=== PATIENT | male | born 1960 | race Caucasian/White ===

== ENCOUNTER → 2016-10-18 | Outpatient (REF) | payer OTHER ==
[2016-10-18 13:46] LABS: ALBUMIN 3.8 GM/DL (3.2-5.2); ALBUMIN/GLOBULIN RATIO 0.95 (1.00-1.93); ALKALINE PHOSPHATASE 88 U/L (45-117); ALT/SGPT 38 U/L (12-78); ANION GAP 9 MEQ/L (8-16); AST/SGOT 15 U/L (15-37); BILIRUBIN,TOTAL 0.6 MG/DL (0.2-1.0); BLOOD UREA NITROGEN 21 MG/DL (7-18); CALCIUM LEVEL 9.4 MG/DL (8.5-10.1); CARBON DIOXIDE LEVEL 29 MEQ/L (21-32); CHLORIDE LEVEL 103 MEQ/L (98-107); CHOLESTEROL LEVEL 168 MG/DL (<200); CREATININE FOR GFR 1.13 MG/DL (0.70-1.30); GLOMERULAR FILTRATION RATE > 60.0 (>56); GLUCOSE, FASTING 158 MG/DL (70-105); POTASSIUM SERUM 4.1 MEQ/L (3.5-5.1); SODIUM LEVEL 141 MEQ/L (136-145); TOTAL PROTEIN 7.8 GM/DL (6.4-8.2); TRIGLYCERIDES LEVEL 439 MG/DL (<150)
== END ==
LOC: M SFHCADAM 10:00
PROVIDERS: ATTEND Physician Assistant Medical
DX: E11.9 Type 2 diabetes mellitus without complications (principal); E78.4 Other hyperlipidemia

== ENCOUNTER → 2017-06-14 | Outpatient (REF) | payer OTHER ==
[2017-06-14 11:20] LABS: BASO # 0.1 10^3/uL (0.0-0.2); BASO % 0.9 % (0.0-1.0); EOS # 0.3 10^3/uL (0.0-0.50); EOS % 3.4 % (0.0-3.0); HEMATOCRIT 49.7 % (42.0-52.0); HEMOGLOBIN 16.6 g/dl (14.0-18.0); LYMPH # 2.4 10^3/uL (1.5-4.5); LYMPH % 25.5 % (24.0-44.0); MEAN CORPUSCULAR HEMOGLOBIN 30.5 pg (27.0-33.0); MEAN CORPUSCULAR HGB CONC 33.4 g/dl (32.0-36.5); MEAN CORPUSCULAR VOLUME 91.2 fl (80.0-96.0); MONO # 0.5 10^3/uL (0.0-0.8); MONO % 5.9 % (0.0-5.0); NEUTROPHILS # 5.8 10^3/uL (1.8-7.7); NEUTROPHILS % 63.3 % (36.0-66.0); PLATELET COUNT, AUTOMATED 219 10^3/uL (150-450); RED BLOOD COUNT 5.45 10^6/uL (4.30-6.10); RED CELL DISTRIBUTION WIDTH 13.3 % (11.5-14.5); WHITE BLOOD COUNT 9.2 10^3/uL (4.0-10.0)
[2017-06-14 11:36] LABS: ESTIMATED AVERAGE GLUCOSE 298 MG/DL (60-110)
[2017-06-14 11:56] LABS: ALBUMIN/GLOBULIN RATIO 1.08 (1.00-1.93); ALKALINE PHOSPHATASE 97 U/L (45-117); ALT/SGPT 19 U/L (12-78); ANION GAP 11 MEQ/L (8-16); AST/SGOT 9 U/L (7-37); BILIRUBIN,TOTAL 0.8 MG/DL (0.2-1.0); BLOOD UREA NITROGEN 15 MG/DL (7-18); CALCIUM LEVEL 9.9 MG/DL (8.5-10.1); CARBON DIOXIDE LEVEL 26 MEQ/L (21-32); CHLORIDE LEVEL 105 MEQ/L (98-107); CHOLESTEROL LEVEL 168 MG/DL (<200); CREATININE FOR GFR 0.94 MG/DL (0.70-1.30); FREE T4 1.08 NG/DL (0.76-1.46); GLOMERULAR FILTRATION RATE > 60.0 (>56); GLUCOSE, FASTING 216 MG/DL (70-100); HDL CHOLESTEROL 35 MG/DL (>40); NON-HDL-C 133 MG/DL; POTASSIUM SERUM 4.1 MEQ/L (3.5-5.1); SODIUM LEVEL 142 MEQ/L (136-145); THYROID STIMULATING HORMONE 0.846 uIU/ML (0.358-3.740); TOTAL PROTEIN 7.7 GM/DL (6.4-8.2); TRIGLYCERIDES LEVEL 499 MG/DL (<150)
[2017-06-14 12:11] LABS: TOTAL 25(OH) VITAMIN D 21.8 NG/ML (30.0-100.0)
== END ==
LOC: M SFHCADAM 07:43
DX: E11.9 Type 2 diabetes mellitus without complications (principal)
CPT/HCPCS: 84443

== ENCOUNTER → 2017-10-22 | Outpatient (CLI) | payer OTHER | LOC: M RAD 13:05 | DX: H71.01 Cholesteatoma of attic, right ear (principal) | CPT/HCPCS: 70480 ==

== ENCOUNTER → 2017-12-06 | Outpatient (REF) | payer OTHER ==
[2017-12-06 13:47] LABS: TOTAL 25(OH) VITAMIN D 19.4 NG/ML (30.0-100.0)
[2017-12-06 13:49] LABS: ALBUMIN 3.8 GM/DL (3.2-5.2); ALBUMIN/GLOBULIN RATIO 0.95 (1.00-1.93); ALKALINE PHOSPHATASE 95 U/L (45-117); ALT/SGPT 29 U/L (12-78); ANION GAP 8 MEQ/L (8-16); AST/SGOT 11 U/L (7-37); BILIRUBIN,TOTAL 0.4 MG/DL (0.2-1.0); BLOOD UREA NITROGEN 32 MG/DL (7-18); CALCIUM LEVEL 9.5 MG/DL (8.5-10.1); CARBON DIOXIDE LEVEL 30 MEQ/L (21-32); CHLORIDE LEVEL 102 MEQ/L (98-107); CHOLESTEROL LEVEL 206 MG/DL (<200); CHOLESTEROL RISK RATIO 5.421 (<5); CREATININE FOR GFR 1.02 MG/DL (0.70-1.30); GLOMERULAR FILTRATION RATE > 60.0 (>56); GLUCOSE, FASTING 255 MG/DL (70-100); HDL CHOLESTEROL 38 MG/DL (>40); NON-HDL-C 168 MG/DL; POTASSIUM SERUM 4.6 MEQ/L (3.5-5.1); SODIUM LEVEL 140 MEQ/L (136-145); THYROID STIMULATING HORMONE 0.993 uIU/ML (0.358-3.740); TOTAL PROTEIN 7.8 GM/DL (6.4-8.2); TRIGLYCERIDES LEVEL 823 MG/DL (<150)
[2017-12-06 14:09] LABS: CREATININE, URINE 42.6 MG/DL; MALB URINE SIEMENS 19.1 MG/L; MAU/CREAT RATIO 44.8 MCG/MG (0.0-30.0)
[2017-12-06 14:31] LABS: ESTIMATED AVERAGE GLUCOSE 223 MG/DL (60-110); HEMOGLOBIN A1c 9.4 %
== END ==
LOC: M SFHCADAM 08:23
DX: E11.9 Type 2 diabetes mellitus without complications (principal); E78.4 Other hyperlipidemia
CPT/HCPCS: 84443

== ENCOUNTER → 2018-04-09 | Outpatient (REF) | payer OTHER ==
[2018-04-09 14:38] LABS: ESTIMATED AVERAGE GLUCOSE 237 MG/DL (60-110); HEMOGLOBIN A1c 9.9 %
[2018-04-09 14:41] LABS: ALBUMIN 3.9 GM/DL (3.2-5.2); ALKALINE PHOSPHATASE 101 U/L (45-117); ALT/SGPT 24 U/L (12-78); ANION GAP 10 MEQ/L (8-16); AST/SGOT 11 U/L (7-37); BILIRUBIN,TOTAL 0.4 MG/DL (0.2-1.0); BLOOD UREA NITROGEN 34 MG/DL (7-18); CALCIUM LEVEL 9.7 MG/DL (8.5-10.1); CARBON DIOXIDE LEVEL 25 MEQ/L (21-32); CHLORIDE LEVEL 103 MEQ/L (98-107); CHOLESTEROL LEVEL 199 MG/DL (<200); CREATININE FOR GFR 1.13 MG/DL (0.70-1.30); GLOMERULAR FILTRATION RATE > 60.0 (>56); GLUCOSE, FASTING 282 MG/DL (70-100); HDL CHOLESTEROL 33 MG/DL (>40); NON-HDL-C 166 MG/DL; POTASSIUM SERUM 4.3 MEQ/L (3.5-5.1); SODIUM LEVEL 138 MEQ/L (136-145); TOTAL PROTEIN 7.8 GM/DL (6.4-8.2); TRIGLYCERIDES LEVEL 678 MG/DL (<150)
== END ==
LOC: M SFHCADAM 09:16
DX: Z00.00 Encounter for general adult medical examination without abnormal findings (principal)

== ENCOUNTER → 2018-08-26 | Outpatient (REF) | payer OTHER ==
[2018-08-26 19:46] LABS: TOTAL 25(OH) VITAMIN D 37.8 NG/ML (30.0-100.0)
[2018-08-26 19:59] LABS: HEMOGLOBIN A1c 8.6 %
[2018-08-26 22:57] LABS: ALBUMIN 4.1 GM/DL (3.2-5.2); ALT/SGPT 30 U/L (12-78); BILIRUBIN,TOTAL 0.5 MG/DL (0.2-1.0); BLOOD UREA NITROGEN 22 MG/DL (7-18); CARBON DIOXIDE LEVEL 26 MEQ/L (21-32); CHLORIDE LEVEL 106 MEQ/L (98-107); CREATININE FOR GFR 1.15 MG/DL (0.70-1.30); GLOMERULAR FILTRATION RATE > 60.0 (>56); GLUCOSE, FASTING 184 MG/DL (70-100); POTASSIUM SERUM 4.2 MEQ/L (3.5-5.1); SODIUM LEVEL 139 MEQ/L (136-145); TOTAL PROTEIN 7.8 GM/DL (6.4-8.2)
== END ==
LOC: M SFHCADAM 15:51
PROVIDERS: ATTEND Physician Assistant Medical
DX: E11.42 Type 2 diabetes mellitus with diabetic polyneuropathy (principal)

== ENCOUNTER → 2018-11-25 | Outpatient (REF) | payer OTHER ==
[2018-11-25 13:18] LABS: ALBUMIN 3.9 GM/DL (3.2-5.2); ALT/SGPT 28 U/L (12-78); BILIRUBIN,TOTAL 0.7 MG/DL (0.2-1.0); BLOOD UREA NITROGEN 19 MG/DL (7-18); CALCIUM LEVEL 9.3 MG/DL (8.5-10.1); CARBON DIOXIDE LEVEL 26 MEQ/L (21-32); CHLORIDE LEVEL 107 MEQ/L (98-107); CHOLESTEROL LEVEL 155 MG/DL (<200); CREATININE FOR GFR 1.14 MG/DL (0.70-1.30); GLOMERULAR FILTRATION RATE > 60.0 (>56); GLUCOSE, FASTING 158 MG/DL (70-100); HDL CHOLESTEROL 31 MG/DL (>40); NON-HDL-C 124 MG/DL; POTASSIUM SERUM 4.2 MEQ/L (3.5-5.1); SODIUM LEVEL 139 MEQ/L (136-145); TOTAL PROTEIN 7.8 GM/DL (6.4-8.2); TRIGLYCERIDES LEVEL 443 MG/DL (<150)
[2018-11-25 13:39] LABS: CREATININE, URINE 90.7 MG/DL; MALB URINE SIEMENS 12.5 MG/L; MAU/CREAT RATIO 13.7 MCG/MG (0.0-30.0)
[2018-11-25 13:59] LABS: HEMOGLOBIN A1c 7.9 %
== END ==
LOC: M SFHCADAM 08:41
PROVIDERS: ATTEND Physician Assistant Medical
DX: E11.42 Type 2 diabetes mellitus with diabetic polyneuropathy (principal); E78.1 Pure hyperglyceridemia; E55.9 Vitamin D deficiency, unspecified

== ENCOUNTER → 2019-05-22 | Outpatient (REF) | payer OTHER ==
[2019-05-22 12:49] LABS: BASO # 0.1 10^3/uL (0.0-0.2); EOS # 0.3 10^3/uL (0.0-0.5); EOS % 3.2 % (0.0-3.0); HEMATOCRIT 53.3 % (42.0-52.0); HEMOGLOBIN 17.2 g/dl (13.5-17.5); LYMPH # 2.6 10^3/uL (1.5-5.0); LYMPH % 26.7 % (24.0-44.0); MEAN CORPUSCULAR HEMOGLOBIN 29.5 pg (27.0-33.0); MEAN CORPUSCULAR HGB CONC 32.3 g/dl (32.0-36.5); MEAN CORPUSCULAR VOLUME 91.3 fl (80.0-96.0); MONO # 0.6 10^3/uL (0.0-0.8); MONO % 5.7 % (0.0-5.0); NEUTROPHILS % 62.9 % (36.0-66.0); PLATELET COUNT, AUTOMATED 242 10^3/uL (150-450); RED BLOOD COUNT 5.84 10^6/uL (4.30-6.10); WHITE BLOOD COUNT 9.6 10^3/uL (4.0-10.0)
[2019-05-22 13:09] LABS: HEMOGLOBIN A1c 7.9 %
[2019-05-22 13:26] LABS: ALT/SGPT 28 U/L (12-78); BILIRUBIN,TOTAL 0.7 MG/DL (0.2-1.0); BLOOD UREA NITROGEN 15 MG/DL (7-18); CALCIUM LEVEL 9.4 MG/DL (8.8-10.2); CARBON DIOXIDE LEVEL 26 MEQ/L (21-32); CHLORIDE LEVEL 107 MEQ/L (98-107); CHOLESTEROL LEVEL 139 MG/DL (<200); CHOLESTEROL RISK RATIO 4.633 (<5); CREATININE FOR GFR 1.18 MG/DL (0.70-1.30); GLOMERULAR FILTRATION RATE > 60.0 (>49); GLUCOSE, FASTING 109 MG/DL (70-100); HDL CHOLESTEROL 30 MG/DL (>40); LDL CHOLESTEROL 47 MG/DL (<100); NON-HDL-C 109 MG/DL; POTASSIUM SERUM 4.5 MEQ/L (3.5-5.1); SODIUM LEVEL 141 MEQ/L (136-145); TOTAL PROTEIN 7.9 GM/DL (6.4-8.2); TRIGLYCERIDES LEVEL 308 MG/DL (<150)
[2019-05-22 13:27] LABS: TOTAL 25(OH) VITAMIN D 33.8 NG/ML (30.0-100.0)
== END ==
LOC: M SFHCADAM 09:25
PROVIDERS: ATTEND Physician Assistant Medical
DX: E11.42 Type 2 diabetes mellitus with diabetic polyneuropathy (principal); I10 Essential (primary) hypertension; E78.1 Pure hyperglyceridemia; E55.9 Vitamin D deficiency, unspecified

== ENCOUNTER → 2020-10-11 | Outpatient (REF) | payer OTHER ==
[2020-10-11 17:36] LABS: CREATININE, URINE 43.7 MG/DL; MALB URINE SIEMENS 5.9 MG/L; MAU/CREAT RATIO 13.5 MCG/MG (0.0-30.0)
[2020-10-11 18:12] LABS: ALBUMIN 3.6 GM/DL (3.2-5.2); ALT/SGPT 33 U/L (12-78); BILIRUBIN,TOTAL 0.6 MG/DL (0.2-1.0); BLOOD UREA NITROGEN 27 MG/DL (7-18); CALCIUM LEVEL 9.8 MG/DL (8.8-10.2); CARBON DIOXIDE LEVEL 21 MEQ/L (21-32); CHLORIDE LEVEL 100 MEQ/L (98-107); CHOLESTEROL LEVEL 240 MG/DL (<200); CHOLESTEROL RISK RATIO 7.272 (<5); CREATININE FOR GFR 1.04 MG/DL (0.70-1.30); GLOMERULAR FILTRATION RATE > 60.0 (>49); GLUCOSE, FASTING 259 MG/DL (70-100); HDL CHOLESTEROL 33 MG/DL (>40); NON-HDL-C 207 MG/DL; POTASSIUM SERUM 4.5 MEQ/L (3.5-5.1); SODIUM LEVEL 135 MEQ/L (136-145); THYROID STIMULATING HORMONE 0.865 uIU/ML (0.358-3.740); TOTAL 25(OH) VITAMIN D 18.8 NG/ML (30.0-100.0); TOTAL PROTEIN 7.7 GM/DL (6.4-8.2); TRIGLYCERIDES LEVEL 1191 MG/DL (<150)
[2020-10-11 19:31] LABS: HEMOGLOBIN A1c 11.7 %
== END ==
LOC: M SFHCADAM 14:14
PROVIDERS: ATTEND Physician Assistant Medical
DX: E11.42 Type 2 diabetes mellitus with diabetic polyneuropathy (principal); E55.9 Vitamin D deficiency, unspecified; E78.1 Pure hyperglyceridemia

== ENCOUNTER → 2023-04-13 | Outpatient (REF) | payer OTHER ==
[2023-04-13 14:58] LABS: BASO # 0.1 10^3/uL (0.0-0.2); BASO % 1.3 % (0.0-1.0); EOS # 0.6 10^3/uL (0.0-0.5); HEMATOCRIT 43.2 % (42.0-52.0); HEMOGLOBIN 14.1 g/dl (13.5-17.5); MEAN CORPUSCULAR HEMOGLOBIN 30.2 pg (27.0-33.0); MEAN CORPUSCULAR HGB CONC 32.6 g/dl (32.0-36.5); MEAN CORPUSCULAR VOLUME 92.5 fl (80.0-96.0); MONO # 0.4 10^3/uL (0.0-0.8); MONO % 4.9 % (2.0-8.0); NEUTROPHILS # 4.7 10^3/uL (1.5-8.5); NEUTROPHILS % 52.6 % (36.0-66.0); PLATELET COUNT, AUTOMATED 283 10^3/uL (150-450); RED BLOOD COUNT 4.67 10^6/uL (4.30-6.10)
[2023-04-13 14:59] LABS: ALBUMIN 3.7 G/DL (3.2-5.2); BILIRUBIN,TOTAL 0.4 MG/DL (0.3-1.2); CALCIUM LEVEL 9.5 MG/DL (8.3-10.6); CHOLESTEROL RISK RATIO 3.84 (<5); CREATININE FOR GFR 1.35 MG/DL (0.70-1.30); GLOMERULAR FILTRATION RATE 56.6 (>49); HDL CHOLESTEROL 29.4 MG/DL (>40); LDL CHOLESTEROL 35.8 MG/DL (<100); NON-HDL-C 83.6 MG/DL; POTASSIUM SERUM 4.9 MMOL/L (3.5-5.1); THYROID STIMULATING HORMONE 1.181 uIU/ML (0.55-4.78); TOTAL 25(OH) VITAMIN D 35.8 NG/ML (20.0-100.0); TOTAL PROTEIN 7.5 G/DL (5.7-8.2)
[2023-04-13 15:12] LABS: HEMOGLOBIN A1c 7.1 % (4.0-6.0)
== END ==
LOC: M SFHCADAM 08:50
PROVIDERS: ATTEND Physician Assistant Medical
DX: I10 Essential (primary) hypertension (principal); K21.9 Gastro-esophageal reflux disease without esophagitis; E66.01 Morbid (severe) obesity due to excess calories; E55.9 Vitamin D deficiency, unspecified; E11.42 Type 2 diabetes mellitus with diabetic polyneuropathy

== ENCOUNTER → 2023-11-05 | Outpatient (CLI) | payer OTHER | LOC: M ADAMS 10:03 | PROVIDERS: ATTEND Physician Assistant Medical | DX: M51.36 Other intervertebral disc degeneration, lumbar region (principal) ==

== ENCOUNTER → 2023-11-05 | Outpatient (REF) | payer OTHER ==
[2023-11-05 15:04] LABS: BASO # 0.1 10^3/uL (0.0-0.2); BASO % 1.1 % (0.0-1.0); EOS # 0.4 10^3/uL (0.0-0.5); EOS % 3.1 % (0.0-3.0); HEMATOCRIT 43.2 % (42.0-52.0); HEMOGLOBIN 14.4 g/dl (13.5-17.5); LYMPH # 2.8 10^3/uL (1.5-5.0); LYMPH % 23.5 % (24.0-44.0); MEAN CORPUSCULAR HEMOGLOBIN 30.5 pg (27.0-33.0); MEAN CORPUSCULAR HGB CONC 33.3 g/dl (32.0-36.5); MEAN CORPUSCULAR VOLUME 91.5 fl (80.0-96.0); MONO # 0.6 10^3/uL (0.0-0.8); MONO % 4.7 % (2.0-8.0); NEUTROPHILS # 7.8 10^3/uL (1.5-8.5); NEUTROPHILS % 66.3 % (36.0-66.0); PLATELET COUNT, AUTOMATED 268 10^3/uL (150-450); RED BLOOD COUNT 4.72 10^6/uL (4.30-6.10); WHITE BLOOD COUNT 11.8 10^3/uL (4.0-10.0)
[2023-11-05 15:08] LABS: HEMOGLOBIN A1c 8.9 % (4.0-6.0)
[2023-11-05 15:23] LABS: CREATININE, URINE 166.2 MG/DL; MAU/CREAT RATIO 10.2 MCG/MG (0.0-30.0)
[2023-11-05 15:27] LABS: ALBUMIN 4.1 G/DL (3.2-5.2); BILIRUBIN,TOTAL 0.5 MG/DL (0.3-1.2); CALCIUM LEVEL 9.4 MG/DL (8.3-10.6); CREATININE FOR GFR 1.62 MG/DL (0.70-1.30); GLOMERULAR FILTRATION RATE 45.9 (>49); POTASSIUM SERUM 4.8 MMOL/L (3.5-5.1); TOTAL PROTEIN 7.4 G/DL (5.7-8.2)
[2023-11-05 15:28] LABS: THYROID STIMULATING HORMONE 1.415 uIU/ML (0.55-4.78)
== END ==
LOC: M SFHCADAM 09:43
PROVIDERS: ATTEND Physician Assistant Medical
DX: E11.42 Type 2 diabetes mellitus with diabetic polyneuropathy (principal); E55.9 Vitamin D deficiency, unspecified; M51.36 Other intervertebral disc degeneration, lumbar region

== ENCOUNTER → 2023-12-12 | Outpatient (CLI) | payer OTHER | LOC: M RAD 10:49 | PROVIDERS: ATTEND Physician Assistant Medical | DX: N18.31 Chronic kidney disease, stage 3a (principal) ==

== ENCOUNTER → 2024-02-19 | Outpatient (CLI) | payer OTHER | LOC: M RAD 09:51 | PROVIDERS: ATTEND Physician Assistant Medical | DX: Z12.2 Encounter for screening for malignant neoplasm of respiratory organs (principal); F17.210 Nicotine dependence, cigarettes, uncomplicated; J84.10 Pulmonary fibrosis, unspecified ==

== ENCOUNTER → 2024-03-13 | Outpatient (REF) | payer OTHER ==
[2024-03-13 20:25] LABS: HEMOGLOBIN A1c 6.8 % (4.0-6.0)
== END ==
LOC: M SFHCADAM 15:18
PROVIDERS: ATTEND Physician Assistant Medical
DX: E11.42 Type 2 diabetes mellitus with diabetic polyneuropathy (principal)

== ENCOUNTER → 2024-07-08 | Outpatient (REF) | payer OTHER ==
[2024-07-08 17:55] LABS: BASO # 0.1 10^3/uL (0.0-0.2); BASO % 1.3 % (0.0-1.0); EOS # 0.5 10^3/uL (0.0-0.5); EOS % 5.4 % (0.0-3.0); HEMATOCRIT 46.4 % (42.0-52.0); LYMPH % 31.5 % (24.0-44.0); MEAN CORPUSCULAR HEMOGLOBIN 28.4 pg (27.0-33.0); MEAN CORPUSCULAR HGB CONC 32.3 g/dl (32.0-36.5); MEAN CORPUSCULAR VOLUME 87.9 fl (80.0-96.0); MONO # 0.5 10^3/uL (0.0-0.8); MONO % 4.9 % (2.0-8.0); NEUTROPHILS # 5.4 10^3/uL (1.5-8.5); NEUTROPHILS % 56.5 % (36.0-66.0); PLATELET COUNT, AUTOMATED 265 10^3/uL (150-450); RED BLOOD COUNT 5.28 10^6/uL (4.30-6.10); WHITE BLOOD COUNT 9.5 10^3/uL (4.0-10.0)
[2024-07-08 18:25] LABS: ALBUMIN 3.8 G/DL (3.2-5.2); BILIRUBIN,TOTAL 0.3 MG/DL (0.3-1.2); CALCIUM LEVEL 9.3 MG/DL (8.3-10.6); CHOLESTEROL RISK RATIO 4.31 (<5); CREATININE FOR GFR 1.63 MG/DL (0.70-1.30); FREE T4 1.29 NG/DL (0.89-1.76); GLOMERULAR FILTRATION RATE 45.4 (>49); HDL CHOLESTEROL 28.5 MG/DL (>40); LDL CHOLESTEROL 25.7 MG/DL (<100); NON-HDL-C 94.5 MG/DL; POTASSIUM SERUM 4.6 MMOL/L (3.5-5.1); TOTAL PROTEIN 7.7 G/DL (5.7-8.2)
[2024-07-08 18:26] LABS: THYROID STIMULATING HORMONE 0.796 uIU/ML (0.55-4.78)
[2024-07-08 18:27] LABS: TOTAL 25(OH) VITAMIN D 38.9 NG/ML (20.0-100.0)
[2024-07-08 18:56] LABS: HEMOGLOBIN A1c 6.6 % (4.0-6.0)
== END ==
LOC: M SFHCADAM 14:24
PROVIDERS: ATTEND Physician Assistant Medical
DX: E11.42 Type 2 diabetes mellitus with diabetic polyneuropathy (principal); N18.31 Chronic kidney disease, stage 3a; E66.01 Morbid (severe) obesity due to excess calories; E55.9 Vitamin D deficiency, unspecified; E11.22 Type 2 diabetes mellitus with diabetic chronic kidney disease; E16.2 Hypoglycemia, unspecified

== ENCOUNTER → 2024-08-19 | Outpatient (REF) | payer MEDICARE, OTHER | LOC: M SFHCADAM 16:49 | PROVIDERS: ATTEND Physician Assistant Medical | DX: L72.3 Sebaceous cyst (principal); L08.9 Local infection of the skin and subcutaneous tissue, unspecified ==

== ENCOUNTER → 2025-01-01 | Outpatient (REF) | payer MEDICARE ==
[2025-01-01 13:35] LABS: ALT/SGPT 15.0 U/L (7.0-40); AST/SGOT 14.0 U/L (<34); CALCIUM LEVEL 9.5 MG/DL (8.3-10.6); CARBON DIOXIDE LEVEL 24.0 MMOL/L (20-31); CHLORIDE LEVEL 112.0 MMOL/L (98-107); CHOLESTEROL LEVEL 97.0 MG/DL (<200); CHOLESTEROL RISK RATIO 3.19 (<5); CREATININE FOR GFR 1.46 MG/DL (0.70-1.30); GLOMERULAR FILTRATION RATE 53.0 (>49); LDL CHOLESTEROL 46.0 MG/DL (<100); NON-HDL-C 66.6 MG/DL; POTASSIUM SERUM 5.1 MMOL/L (3.5-5.1); SODIUM LEVEL 146.0 MMOL/L (136-145); TRIGLYCERIDES LEVEL 103.0 MG/DL (<150)
[2025-01-01 13:36] LABS: BASO # 0.1 10^3/uL (0.0-0.2); BASO % 1.0 % (0.0-1.0); EOS # 0.3 10^3/uL (0.0-0.5); EOS % 3.4 % (0.0-3.0); LYMPH # 1.9 10^3/uL (1.5-5.0); LYMPH % 26.2 % (24.0-44.0); MONO # 0.4 10^3/uL (0.0-0.8); MONO % 5.2 % (2.0-8.0); NEUTROPHILS # 4.7 10^3/uL (1.5-8.5); NEUTROPHILS % 63.8 % (36.0-66.0); PLATELET COUNT, AUTOMATED 244 10^3/uL (150-450)
[2025-01-01 13:52] LABS: ESTIMATED AVERAGE GLUCOSE 128.0 MG/DL (60-110)
== END ==
LOC: M SFHCADAM 09:21
PROVIDERS: ATTEND Physician Assistant Medical
DX: E11.42 Type 2 diabetes mellitus with diabetic polyneuropathy (principal); N18.31 Chronic kidney disease, stage 3a; E66.01 Morbid (severe) obesity due to excess calories; E55.9 Vitamin D deficiency, unspecified; E11.22 Type 2 diabetes mellitus with diabetic chronic kidney disease

== ENCOUNTER → 2025-01-08 | Outpatient (CLI) | payer MEDICARE | LOC: M ADAMS 12:02 | PROVIDERS: ATTEND Physician Assistant Medical | DX: R63.4 Abnormal weight loss (principal) ==

== ENCOUNTER → 2025-01-08 | Outpatient (REF) | payer MEDICARE ==
[2025-01-08 18:31] LABS: C REACTIVE PROTEIN QUANTITATIV 0.58 MG/DL (<1.0)
[2025-01-08 18:32] LABS: FREE T4 1.40 NG/DL (0.89-1.76)
[2025-01-08 19:11] LABS: HEPATITIS C VIRUS ABY INDEX < 0.02 INDEX (<0.8)
== END ==
LOC: M SFHCADAM 11:56
PROVIDERS: ATTEND Physician Assistant Medical
DX: R63.4 Abnormal weight loss (principal)

== ENCOUNTER → 2025-03-10 | Outpatient (REF) | payer MEDICARE ==
[~2025-03-10] MED LIST: ATOR40TA75 PO; FARX1TAB3 PO; GLIP-318 PO; LANTINJ4 SC; LOSA25TA13 PO; METF500T13 PO; PANT40TA29 PO
[2025-03-10 13:36] LABS: BASO # 0.1 10^3/uL (0.0-0.2); BASO % 1.0 % (0.0-1.0); EOS # 0.2 10^3/uL (0.0-0.5); EOS % 1.8 % (0.0-3.0); LYMPH # 2.1 10^3/uL (1.5-5.0); LYMPH % 20.4 % (24.0-44.0); MONO # 0.6 10^3/uL (0.0-0.8); MONO % 5.9 % (2.0-8.0); NEUTROPHILS # 7.3 10^3/uL (1.5-8.5); NEUTROPHILS % 70.4 % (36.0-66.0); PLATELET COUNT, AUTOMATED 271 10^3/uL (150-450)
[2025-03-10 14:08] LABS: ALT/SGPT 14.0 U/L (7.0-40); AST/SGOT 11.0 U/L (<34); CALCIUM LEVEL 9.0 MG/DL (8.3-10.6); CARBON DIOXIDE LEVEL 27.0 MMOL/L (20-31); CHLORIDE LEVEL 108.0 MMOL/L (98-107); CHOLESTEROL LEVEL 91.0 MG/DL (<200); CHOLESTEROL RISK RATIO 2.93 (<5); CREATININE FOR GFR 1.47 MG/DL (0.70-1.30); GLOMERULAR FILTRATION RATE 52.3 (>49); LDL CHOLESTEROL 23.6 MG/DL (<100); NON-HDL-C 60.0 MG/DL; POTASSIUM SERUM 4.7 MMOL/L (3.5-5.1); SODIUM LEVEL 143.0 MMOL/L (136-145); TOTAL 25(OH) VITAMIN D 48.9 NG/ML (20.0-100.0); TRIGLYCERIDES LEVEL 182.0 MG/DL (<150); VITAMIN B12 LEVEL 567.0 PG/ML (211-911)
[2025-03-10 14:09] LABS: FREE T4 1.48 NG/DL (0.89-1.76)
[2025-03-10 14:11] LABS: ESTIMATED AVERAGE GLUCOSE 131.0 MG/DL (60-110)
== END ==
LOC: M SFHCADAM 11:04
PROVIDERS: ATTEND Physician Assistant Medical
DX: E11.42 Type 2 diabetes mellitus with diabetic polyneuropathy (principal); F17.210 Nicotine dependence, cigarettes, uncomplicated; E16.2 Hypoglycemia, unspecified; E55.9 Vitamin D deficiency, unspecified
CPT/HCPCS: 80053; 80061; 82306; 82607; 82746; 83036; 84439; 84443; 85025; 99406; G0463

== ENCOUNTER 2025-03-25 08:50 | Day surgery (SDC) | payer MEDICARE ==
[~2025-03-25] VITALS: Ht 172.7 cm; Wt 78.4 kg
[2025-03-25] MEDS ORDERED: LIDOCAINE 2% 100 MG/5 ML SDV (FOR ANES.) As Ordered ONE (10:42)
[2025-03-25] MEDS ORDERED: PHENYLephrine 500MCG 5ML (100MCG/ML) SYRINGE As Ordered ONE (10:52)
[2025-03-25 11:00] VITALS: TEMP 98.7
[2025-03-25 11:20] VITALS: BP 96/54; O2SAT 97
== END 2025-03-25 11:36 | disposition home or self-care (01) ==
LOC: M OPP 08:50
PROVIDERS: ATTEND Surgery
DX: C18.2 Malignant neoplasm of ascending colon (principal); K56.690 Other partial intestinal obstruction; K64.8 Other hemorrhoids; R63.4 Abnormal weight loss
CPT/HCPCS: 45380; 88305; J2371

== ENCOUNTER → 2025-04-09 | Outpatient (CLI) | payer MEDICARE ==
[~2025-04-09] MED LIST changes: +ISOVUE-370 76% 100 ML VIAL As Ordered ONE
== END ==
LOC: M RAD 13:20
PROVIDERS: ATTEND Surgery
DX: D37.4 Neoplasm of uncertain behavior of colon (principal)
CPT/HCPCS: 74177; Q9967